=== PATIENT | male | born 1965 | race Caucasian/White ===

== ENCOUNTER 2021-10-01 19:08 | Emergency (ER) | payer OTHER ==
[~2021-10-01] VITALS: Ht 172.7 cm; Wt 81.7 kg
[~2021-10-01 19:08] MED LIST: PROM25 PO; Ultram50 MG PO; Veetids 500500 MG PO; Zantac150 MG PO
[2021-10-01] MEDS ORDERED: PENVK500 PO (19:23)
[2021-10-01] MEDS ORDERED: HYDACE10B PO (19:23)
== END 2021-10-01 19:32 | disposition home or self-care (01) ==
LOC: ER 19:08
DX: K02.9 Dental caries, unspecified (principal)
CPT/HCPCS: 99282; A9270

== ENCOUNTER 2021-11-26 09:08 | Emergency (ER) | payer OTHER ==
[~2021-11-26] VITALS: Ht 167.6 cm; Wt 82.1 kg
[~2021-11-26 09:08] MED LIST changes: +ACET500 PO; +AMOCLA875 PO; +HYDACE10B PO; +IBUP400 PO; +OXYC5 PO; +PENVK500 PO
[2021-11-26] MEDS ORDERED: TRAM50 PO (09:54)
[2021-11-26] MEDS ORDERED: Veetids 500500 MG PO (09:54)
== END 2021-11-26 10:03 | disposition home or self-care (01) ==
LOC: ER 09:08
DX: K02.9 Dental caries, unspecified (principal); F15.11 Other stimulant abuse, in remission; Z79.899 Other long term (current) drug therapy
CPT/HCPCS: 99282

== ENCOUNTER 2021-12-10 15:44 | Emergency (ER) | payer OTHER ==
[~2021-12-10] VITALS: Ht 170.2 cm; Wt 82.5 kg
[~2021-12-10 15:44] MED LIST changes: +TRAM50 PO
[2021-12-10] MEDS ORDERED: Ultram50 MG PO (15:52)
[2021-12-10] MEDS ORDERED: Cleocin HCl150 MG PO (15:55)
[2021-12-10] MEDS ORDERED: TYLECOD3 PO (15:55)
== END 2021-12-10 15:57 | disposition home or self-care (01) ==
LOC: ER 15:44
DX: K02.9 Dental caries, unspecified (principal); Z79.899 Other long term (current) drug therapy
CPT/HCPCS: 99282

== ENCOUNTER 2022-01-25 14:28 | Emergency (ER) | payer OTHER ==
[~2022-01-25] VITALS: Ht 170.2 cm; Wt 77.1 kg
[~2022-01-25 14:28] MED LIST changes: +Cleocin HCl150 MG PO; +TYLECOD3 PO
[2022-01-25] MEDS ORDERED: Amoxicillin500 MG PO (15:19)
[2022-01-25] MEDS ORDERED: CODACE30 PO (15:19)
== END 2022-01-25 15:30 | disposition home or self-care (01) ==
LOC: ER 14:28
DX: K04.7 Periapical abscess without sinus (principal); Z79.899 Other long term (current) drug therapy
CPT/HCPCS: 99282

== ENCOUNTER 2022-10-03 12:19 | Emergency (ER) | payer OTHER ==
[~2022-10-03] VITALS: Ht 172.7 cm; Wt 81.7 kg
[~2022-10-03 12:19] MED LIST changes: +Amoxicillin500 MG PO; +CODACE30 PO
[2022-10-03] MEDS ORDERED: Amoxicillin875 MG PO (12:32)
[2022-10-03] MEDS ORDERED: TYLECOD3 PO ×2 (12:32→14:38)
== END 2022-10-03 12:34 | disposition home or self-care (01) ==
LOC: ER 12:19
DX: K04.7 Periapical abscess without sinus (principal)
CPT/HCPCS: 99282

== ENCOUNTER 2022-11-14 10:31 | Emergency (ER) | payer OTHER ==
[~2022-11-14] VITALS: Ht 170.2 cm; Wt 77.1 kg
[~2022-11-14 10:31] MED LIST changes: +Amoxicillin875 MG PO
[2022-11-14 11:09] VITALS: BP 123/85
[2022-11-14] MEDS ORDERED: Amoxicillin500 MG PO (11:13)
[2022-11-14] MEDS ORDERED: TYLECOD3 PO (11:13)
== END 2022-11-14 11:50 | disposition home or self-care (01) ==
LOC: ER 10:31
DX: K02.9 Dental caries, unspecified (principal)
CPT/HCPCS: 99282

== ENCOUNTER 2024-07-26 13:04 | Emergency (ER) | payer OTHER ==
[~2024-07-26] VITALS: Ht 167.6 cm; Wt 85.7 kg
[2024-07-26 13:44] VITALS: BP 150/98
[2024-07-26] MEDS ORDERED: Norco 5-325 Ta1 EACH PO (15:46)
== END 2024-07-26 15:48 | disposition home or self-care (01) ==
LOC: ER 13:04
DX: M70.52 Other bursitis of knee, left knee (principal); Z79.899 Other long term (current) drug therapy
CPT/HCPCS: 73562-LT; 99283-25